=== PATIENT | male | born 1950 | race Caucasian/White ===

== ENCOUNTER 2016-10-01 10:10 | Emergency (ER) | payer OTHER, MEDICARE ==
[~2016-10-01] VITALS: Ht 175.3 cm; Wt 102.4 kg
[~2016-10-01 10:10] MED LIST: AMLO-114 PO; CIPR-255 PO; LISI-725 PO
[2016-10-01 10:15] VITALS: Ht 175.3 cm; Wt 102.4 kg
--- NOTE | 2016-10-01 11:01 | EMERGENCY ROOM VISIT NOTE ---
History Report prepared by Ede: Mayank Wise Under the Supervision of: Dr. Selvin Vu M.D. First contact with patient: 10:31 Chief Complaint: BACK PAIN Stated Complaint: BACK PAIN-PAIN GOES DOWN LEG AND HAND PAIN History of Present Illness The patient is a 66 year old male who presents to the Emergency Room with complaints of persistent bilateral lower back pain for the past two months. The pain is rated 7/10 in severity, and is worsened with movement. He is able to ambulate. The patient has not taken any NSAIDS for pain. The patient also has pain radiating down his bilateral legs. He has had right thumb pain with movement for the past two months as well. The patient denies any urinary symptoms or incontinence of bowel or bladder. The patient saw his PCP (Hafsa ), who referred him to physical therapy, which did not relieve his back pain. He has continued doing the exercises from physical therapy without relief. The patient has a history of hypertension and diabetes. He denies any history of arthritis. Source of History: patient Onset: two months Position: back (lower) Symptom Intensity: 7/10 Timing: other (persistent) Modifying Factors (Worsening): movement Associated Symptoms: No urinary symptoms Review of Systems All systems have been listed, reviewed, and are negative other than those previously mentioned. Please see Additional Medical History Sheet. Past Medical & Surgical Medical Problems: (1) BPH (benign prostatic hypertrophy) (2) Diabetes (3) Hypertension Family History Psychiatric illness Social History Smoking Status: Never Smoker Alcohol Use: none Drug Use: none Marital Status: single Occupation Status: unemployed Current/Historical Medications Scheduled Amlodipine (Norvasc), 10 MG PO QAM Aspirin (Aspir-Low), 1 TAB PO DAILY Lisinopril (Zestril), 20 MG PO QAM Scheduled PRN Ibuprofen Tab (Motrin), 600 MG PO Q6H PRN for Pain Allergies Coded Allergies: No Known Allergies (Unverified , 10/01/16) Physical Exam Vital Signs Date Time Temp Pulse Resp B/P Pulse Ox O2 Delivery O2 Flow Rate FiO2 10/01/16 13:03 36.7 75 18 109/70 98 10/01/16 12:47 75 18 109/70 98 Room Air 10/01/16 10:15 36.7 101 18 122/73 95 Room Air Physical Exam GENERAL: Patient awake, alert, oriented x 3. Patient follows commands. Patient does not appear toxic. Patient is adequately hydrated and well- nourished. SKIN: No erythema, pallor, cyanosis or rash HEENT: Normal head, pupils equal, reactive to light and accommodation. Ears normal. Oral cavity and posterior pharynx appear normal. Neck: Without adenopathy, no neck vein distention. LUNGS: Clear to auscultation. No wheezes, no rales, no rhonchi. HEART: 3/6 systolic murmur which the patient says is old. Regular rate and rhythm. ABDOMEN: No masses, no rebound, no hepatomegaly or splenomegaly. Soft, nontender. BACK: No midline spinal tenderness. No paraspinal tenderness. No CVA tenderness. Negative straight leg raises bilaterally. EXTREMITIES: No signs of trauma. No pedal or pretibial edema. No calf or thigh tenderness. Full range of motion of the right thumb, no obvious deformity , pain with resisted extension. NEUROLOGIC: Cranial nerves II-XII within normal limits. No gross motor sensory function deficits. Medical Decision & Procedures ER Provider Diagnostic Interpretation: X ray results are stated below per my interpretation and the radiologist's interpretation. RIGHT THUMB 3 VIEWS HISTORY: pain in thumb Right COMPARISON: None. FINDINGS: There is no fracture or dislocation. Soft tissues are unremarkable. No radiopaque foreign bodies. Moderate osteoarthritis at the first carpometacarpal joint with mild osteoarthritis at the first MCP joint and interphalangeal joint of the thumb. IMPRESSION: Right thumb osteoarthritis most pronounced at the carpometacarpal joint. No fracture or dislocation. Electronically signed by: Esau Jeronimo M.D. 10/01/2016 11:59 AM Dictated Date/Time: 10/01/2016 11:57 AM FLUOROSCOPIC IMAGES OF THE LUMBAR SPINE CLINICAL HISTORY: Low back pain. COMPARISON: None FLUOROSCOPY TIME: FINDINGS: Vertebral body heights are maintained. There is no fracture or suspicious lesion. There is mild to moderate multilevel degenerative disc disease and facet arthrosis. IMPRESSION: 1. No acute lumbar spine fracture or subluxation. 2. Mild to moderate multilevel degenerative disc disease and facet arthrosis of the lumbar spine. Electronically signed by: Noah Cox M.D. 10/01/2016 12:05 PM Dictated Date/Time: 10/01/2016 12:05 PM Medications Administered Medications (Trade) Dose Ordered Sig/Con Route Start Time Stop Time Status Last Admin Dose Admin Ibuprofen (Motrin Tab) 600 mg NOW STAT PO 10/01/16 11:04 10/01/16 11:08 DC 10/01/16 11:18 600 MG ED Course 1032: The patient was evaluated by the [facility]. 1057: Past medical records reviewed. The patient was evaluated in room C4. A complete history and physical examination was performed. 1104: Ibuprofen 600 mg PO. 1235: The medical student went over the findings with the patient. He is okay with taking NSAIDS and will be discharged. 1245: Upon reevaluation, the patient appeared to have improvement of his symptoms. I discussed today's findings with him. He verbalized agreement of the treatment plan. He was discharged home. Medical Decision I considered multiple diagnoses including lower back pain, arthritis, De Quervain tenosynovitis, lumbar spinal stenosis vs disc herniation, sciatica, muscular strain, kidney stones. The patient's clinical findings and imaging are most consistent with arthritis in both his hand and lower back. The patient will be placed on ibuprofen. The patient is on blood pressure medication which may be affected but I believe the benefit outweighs the risk at this time. The patient was encouraged to follow back with his family physician to make sure that he is having improvement and to check his blood pressure. Impression Primary Impression: Degenerative joint disease (DJD) of lumbar spine Additional Impression: Degenerative joint disease of right hand Scribe Attestation The scribe's documentation has been prepared under my direction and personally reviewed by me in its entirety. I confirm that the note above accurately reflects all work, treatment, procedures, and medical decision making performed by me. Departure Information Dispostion Home / Self-Care Prescriptions Ibuprofen Tab (MOTRIN) 600 Mg Tab 600 MG PO Q6H Y for Pain, #20 TAB Prov: Selvin Vu M.D. 10/01/16 Referrals Joy Martins D.O. (PCP) Forms HOME CARE DOCUMENTATION FORM, IMPORTANT VISIT INFORMATION Patient Instructions My [facility] Additional Instructions 600 mg ibuprofen every 6 hours as needed for back or thumb pain. Continue all of your current medications as prescribed. Follow-up with a family physician within the next 2 weeks. Problem Qualifiers
[2016-10-01] MEDS ORDERED: IBUPROFEN 600 MG TAB PO STA (11:04)
[2016-10-01] MEDS ORDERED: ASPI81TA25 PO (11:16)
--- NOTE | 2016-10-01 12:01 | DIAGNOSTIC IMAGING REPORT ---
RIGHT THUMB 3 VIEWS HISTORY: pain in thumb Right COMPARISON: None. FINDINGS: There is no fracture or dislocation. Soft tissues are unremarkable. No radiopaque foreign bodies. Moderate osteoarthritis at the first carpometacarpal joint with mild osteoarthritis at the first MCP joint and interphalangeal joint of the thumb. IMPRESSION: Right thumb osteoarthritis most pronounced at the carpometacarpal joint. No fracture or dislocation. Electronically signed by: Esau Jeronimo M.D. 10/01/2016 11:59 AM Dictated Date/Time: 10/01/2016 11:57 AM
--- NOTE | 2016-10-01 12:07 | DIAGNOSTIC IMAGING REPORT ---
FLUOROSCOPIC IMAGES OF THE LUMBAR SPINE CLINICAL HISTORY: Low back pain. COMPARISON: None FLUOROSCOPY TIME: FINDINGS: Vertebral body heights are maintained. There is no fracture or suspicious lesion. There is mild to moderate multilevel degenerative disc disease and facet arthrosis. IMPRESSION: 1. No acute lumbar spine fracture or subluxation. 2. Mild to moderate multilevel degenerative disc disease and facet arthrosis of the lumbar spine. Electronically signed by: Noah Cox M.D. 10/01/2016 12:05 PM Dictated Date/Time: 10/01/2016 12:05 PM
[2016-10-01] MEDS ORDERED: IBUP-1427 PO (12:44)
[2016-10-01 13:03] VITALS: BP 109/70; PULSE 75; TEMP 36.7; O2SAT 98
== END 2016-10-01 13:05 | disposition home or self-care (01) ==
LOC: C.EDB 10:12 → C.EDC 13:05
DX: M51.36 Other intervertebral disc degeneration, lumbar region (principal); M19.041 Primary osteoarthritis, right hand; I10 Essential (primary) hypertension; E11.9 Type 2 diabetes mellitus without complications; N40.0 Benign prostatic hyperplasia without lower urinary tract symptoms; Z79.82 Long term (current) use of aspirin; Z79.899 Other long term (current) drug therapy

== ENCOUNTER 2018-04-29 06:42 | Emergency (ER) | payer MEDICARE, OTHER ==
[~2018-04-29] VITALS: Ht 175.3 cm; Wt 101.0 kg
[~2018-04-29 06:42] MED LIST changes: -AMLO-114 PO; +AMLO10TA3 PO; +ASPI81TA25 PO; -CIPR-255 PO
[2018-04-29] MEDS ORDERED: SODIUM CHLORIDE 0.9% 1000ML 1,000 ML IV STA (06:48)
[2018-04-29 06:50] VITALS: TEMP 36.5; Ht 175.3 cm; Wt 101.0 kg
--- NOTE | 2018-04-29 06:52 | EMERGENCY ROOM VISIT NOTE ---
History Report prepared by Ede: Nanda Corona Under the Supervision of: Dr. Lui Nayak M.D. First contact with patient: 06:46 Stated Complaint: RECTAL BLEED History of Present Illness The patient is a 67 year old male who presents to the Emergency Room with complaints of rectal bleeding beginning at 1930 last night. He notes he has diarrhea with bright red blood and states it was "pouring out of him nonstop." He had some diaphoresis but denies any LOC, fevers, blood in his urine, pain with his diarrhea, abdominal pain, black stools, or syncope. The patient takes 81 mg of aspirin regularly but is not on any blood thinners. Source of History: patient Onset: 1929 last night Position: other (rectum) Quality: other (rectal bleeding) Timing: other ("poruing out of him nonstop") Associated Symptoms: + diaphoresis, No LOC, No fevers, No urinary symptoms ( blood in his urine) Note: Negative pain with diarrhea, history of CHF Review of Systems See HPI for pertinent positives and negatives. A total of ten systems were reviewed and were otherwise negative. Past Medical & Surgical Medical Problems: (1) BPH (benign prostatic hypertrophy) (2) Diabetes (3) Hypertension Family History Psychiatric illness Social History Smoking Status: Never Smoker Alcohol Use: none Drug Use: none Marital Status: single Occupation Status: unemployed Current/Historical Medications Scheduled Amlodipine (Norvasc), 10 MG PO QAM Aspirin (Aspir-Low), 1 TAB PO DAILY Lisinopril (Zestril), 20 MG PO QAM Allergies Coded Allergies: No Known Allergies (Unverified , 10/01/16) Physical Exam Vital Signs Date Time Temp Pulse Resp B/P (MAP) Pulse Ox O2 Delivery O2 Flow Rate FiO2 04/29/18 07:47 91 18 160/103 95 04/29/18 06:55 102 04/29/18 06:50 36.5 100 18 179/112 96 Room Air Physical Exam Physical Exam GENERAL: He is oriented to person, place, and time. He appears well-developed and well-nourished. He does not appear distressed. HENT: Exam performed. Head: Normocephalic and atraumatic. Right Ear: External ear normal. No mastoid tenderness. Left Ear: External ear normal. No mastoid tenderness. Mouth/Throat: The oropharynx is clear and moist. No trismus in the jaw. No dental abscesses or uvula swelling. No oropharyngeal exudate or tonsillar abscesses. EYES: Conjunctivae and EOM are normal. Pupils are equal, round, and reactive to light. Right eye exhibits no discharge. Left eye exhibits no discharge. No scleral icterus. NECK: Normal range of motion. Neck supple. No JVD present. No spinous process tenderness present. No carotid bruit present. No rigidity. No tracheal deviation and normal range of motion present. No Brudzinski's sign and no Kernig 's sign noted. CV: Normal rate, regular rhythm, normal heart sounds and intact distal pulses. There is no peripheral edema. Palpable radial pulses bue. PULM/CHEST: Effort normal and breath sounds normal. No respiratory distress. No stridor. He has no wheezes. He has no rales. Chest Wall: He exhibits no tenderness. ABD: The abdomen is soft. Bowel sounds are normal. He has no distension. No mass is present. There is no tenderness. There is no rebound, no guarding, no Currie's sign and no tenderness at McBurney's point. Rovsig negative.Bright red blood per rectum MUSC/SKEL: Normal range of motion. There is no peripheral edema, tenderness or deformity. LYMPH: No cervical adenopathy. NEURO: He is alert and oriented to person, place, and time. He has normal strength. No cranial nerve deficit or sensory deficit. Coordination and gait normal. GCS eye subscore is 4. GCS verbal subscore is 5. GCS motor subscore is 6. Cerebellar tests wnl. SKIN: Skin is warm and dry. He is not diaphoretic. PSYCH: He has a normal mood and affect. Behavior is normal. Judgment and thought content normal. Medical Decision & Procedures Laboratory Results 04/29/18 06:50 Red Blood Count 4.70, Mean Corpuscular Volume 87.4, Mean Corpuscular Hemoglobin 28.5, Mean Corpuscular Hemoglobin Concent 32.6, Mean Platelet Volume 11.0, Neutrophils (%) (Auto) 80.0, Lymphocytes (%) (Auto) 11.6, Monocytes (%) (Auto) 5.2, Eosinophils (%) (Auto) 2.6, Basophils (%) (Auto) 0.3, Neutrophils # (Auto) 9.41, Lymphocytes # (Auto) 1.36, Monocytes # (Auto) 0.61, Eosinophils # (Auto) 0.31, Basophils # (Auto) 0.03 04/29/18 06:50 Test 04/29/18 06:50 White Blood Count 11.76 K/uL (4.8-10.8) Red Blood Count 4.70 M/uL (4.7-6.1) Hemoglobin 13.4 g/dL (14.0-18.0) Hematocrit 41.1 % (42-52) Mean Corpuscular Volume 87.4 fL (80-100) Mean Corpuscular Hemoglobin 28.5 pg (25-34) Mean Corpuscular Hemoglobin Concent 32.6 g/dl (32-36) Platelet Count 231 K/uL (130-400) Mean Platelet Volume 11.0 fL (7.4-10.4) Neutrophils (%) (Auto) 80.0 % Lymphocytes (%) (Auto) 11.6 % Monocytes (%) (Auto) 5.2 % Eosinophils (%) (Auto) 2.6 % Basophils (%) (Auto) 0.3 % Neutrophils # (Auto) 9.41 K/uL (1.4-6.5) Lymphocytes # (Auto) 1.36 K/uL (1.2-3.4) Monocytes # (Auto) 0.61 K/uL (0.11-0.59) Eosinophils # (Auto) 0.31 K/uL (0-0.5) Basophils # (Auto) 0.03 K/uL (0-0.2) RDW Standard Deviation 44.4 fL (36.4-46.3) RDW Coefficient of Variation 13.8 % (11.5-14.5) Immature Granulocyte % (Auto) 0.3 % Immature Granulocyte # (Auto) 0.04 K/uL (0.00-0.02) Prothrombin Time 10.6 SECONDS (9.0-12.0) Prothromb Time International Ratio 1.0 (0.9-1.1) Activated Partial Thromboplast Time 24.7 SECONDS (21.0-31.0) Partial Thromboplastin Ratio 1.0 Anion Gap 9.0 mmol/L (3-11) Est Creatinine Clear Calc Drug Dose 55.6 ml/min Estimated GFR () 55.6 Estimated GFR (Non- 48.0 BUN/Creatinine Ratio 18.2 (10-20) Calcium Level 8.2 mg/dl (8.5-10.1) Total Bilirubin 0.5 mg/dl (0.2-1) Direct Bilirubin 0.1 mg/dl (0-0.2) Aspartate Amino Transf (AST/SGOT) 12 U/L (15-37) Alanine Aminotransferase (ALT/SGPT) 19 U/L (12-78) Alkaline Phosphatase 108 U/L (45-117) Total Protein 6.8 gm/dl (6.4-8.2) Albumin 3.2 gm/dl (3.4-5.0) Lipase 118 U/L (73-393) Laboratory results reviewed by me Medications Administered Medications (Trade) Dose Ordered Sig/Con Route Start Time Stop Time Status Last Admin Dose Admin Sodium Chloride 1,000 ml @ 999 mls/hr Q1H1M STAT IV 04/29/18 06:48 04/29/18 07:48 DC 04/29/18 07:00 999 MLS/HR ECG Per My Interpretation Indication: other (anemia) Rate (beats per minute): 100 Rhythm: sinus rhythm Findings: other (VA, QRS, and QTC limits within normal limits, no ST elevation or depression ) ED Course 0647: The patient was evaluated in room A12. A complete history and physical exam was performed. 0648: Ordered Sodium Chloride 1000 ml @ 999 mls/hr IV 1925: Vital signs stable. His labs show hemoglobin of 13.4 stable at his baseline. Creatine is 1.47 stable at baseline. Repeat abdominal exam wnl. No pain on palpation of abdomen. Pt will follow up with PCP and major case detective will see the pt. He will follow up with GI. DISCHARGE - Plan of care discussed with patient and questions answered. The patient was given both verbal and printed discharge instructions. The patient verbalized understanding and ability to comply. The patient is to seek outpatient follow up as noted in the discharge instructions. The patient verbalized understanding and ability to comply. The patient is discharged in stable condition. The patient was instructed to return for worsening symptoms. Medical Decision Vital signs stable. His labs show hemoglobin of 13.4 stable at his baseline. Creatine is 1.47 stable at baseline. Repeat abdominal exam wnl. No pain on palpation of abdomen. Pt will follow up with PCP and major case detective will see the pt. He will follow up with GI. DISCHARGE - Plan of care discussed with patient and questions answered. The patient was given both verbal and printed discharge instructions. The patient verbalized understanding and ability to comply. The patient is to seek outpatient follow up as noted in the discharge instructions. The patient verbalized understanding and ability to comply. The patient is discharged in stable condition. The patient was instructed to return for worsening symptoms. Medication Reconcilliation Current Medication List: was personally reviewed by me Blood Pressure Screening Patient's blood pressure: Elevated blood pressure Blood pressure disposition: Elevated BP felt to be situational Impression Primary Impression: Hematochezia Scribe Attestation The scribe's documentation has been prepared under my direction and personally reviewed by me in its entirety. I confirm that the note above accurately reflects all work, treatment, procedures, and medical decision making performed by me. The chart was completed utilizing [employer] Speech voice recognition software. Grammatical errors, random word insertions, pronoun errors, and incomplete sentences are an occasional consequence of this system due to software limitations, ambient noise, and hardware issues. Any formal questions or concerns about the content, text, or information contained within the body of this dictation should be directly addressed to the physician for clarification. Departure Information Dispostion Home / Self-Care Referrals Joy Martins D.O. (PCP) Forms HOME CARE DOCUMENTATION FORM, IMPORTANT VISIT INFORMATION, WORK / SCHOOL INSTRUCTIONS Additional Instructions Follow-up with GI in 1-2 weeks. Return to the emergency department if you develop fever greater 100.4, abdominal pain, lose consciousness, develop blood in urine, black tarry stools, or your symptoms continue/worsen.
[2018-04-29 07:00] LABS: BASO % 0.3 %; BASO ABS # 0.03 K/uL (0-0.2); EOS % 2.6 %; EOS ABS # 0.31 K/uL (0-0.5); HEMATOCRIT 41.1 % (42-52); HEMOGLOBIN 13.4 g/dL (14.0-18.0); IG# 0.04 K/uL (0.00-0.02); LYMPH % 11.6 %; LYMPH ABS # 1.36 K/uL (1.2-3.4); MEAN CELL VOLUME 87.4 fL (80-100); MEAN CORPUSCULAR HEMOGLOBIN 28.5 pg (25-34); MEAN CORPUSCULAR HGB CONC 32.6 g/dl (32-36); MONO % 5.2 %; MONO ABS # 0.61 K/uL (0.11-0.59); NEUT ABS # 9.41 K/uL (1.4-6.5); PLATELET COUNT 231 K/uL (130-400); RED CELL DISTRIBUTION WIDTH CV 13.8 % (11.5-14.5); RED CELL DISTRIBUTION WIDTH SD 44.4 fL (36.4-46.3); WHITE BLOOD COUNT 11.76 K/uL (4.8-10.8)
[2018-04-29 07:10] LABS: PTT PATIENT 24.7 SECONDS (21.0-31.0)
[2018-04-29 07:19] LABS: ALBUMIN 3.2 gm/dl (3.4-5.0); CALCIUM 8.2 mg/dl (8.5-10.1); CREATININE 1.47 mg/dl (0.60-1.40); POTASSIUM 3.8 mmol/L (3.5-5.1); TOTAL PROTEIN 6.8 gm/dl (6.4-8.2)
[2018-04-29 07:47] VITALS: BP 160/103; PULSE 91; O2SAT 95
== END 2018-04-29 07:48 | disposition home or self-care (01) ==
LOC: EDBD 06:42 → C.EDA 06:44
DX: K92.1 Melena (principal); N40.0 Benign prostatic hyperplasia without lower urinary tract symptoms; E11.9 Type 2 diabetes mellitus without complications; I10 Essential (primary) hypertension; Z81.8 Family history of other mental and behavioral disorders; Z79.899 Other long term (current) drug therapy; Z79.82 Long term (current) use of aspirin

== ENCOUNTER 2021-01-29 08:22 | Inpatient (IN) ==
--- NOTE | 2020-12-09 12:13 | PAT Medication Instructions ---
Medication Instructions Date of Service December 09, 2020 Home Medications Medication Instructions Recorded lancets 30 gauge #50 ea 02/05/20 blood-glucose meter #1 ea 02/06/20 glipizide 5 mg tablet 5 mg PO BID #180 tab 05/13/20 tramadol 50 mg tablet 50 mg PO Q8H PRN #14 tab 05/30/20 amlodipine 10 mg tablet 10 mg PO QAM #90 tab 06/17/20 atorvastatin 20 mg tablet 20 mg PO QAM #90 tab 06/17/20 blood sugar diagnostic #50 ea 09/17/20 aspirin [Aspir-81] 81 mg PO QAM glucosamine sulf dipot chlr,msm,chond 550 mg-C 30 mg-josefina 1 mg capsule 1 cap PO QPM metformin 500 mg tablet 500 mg PO BID glipizide 5 mg tablet 5 mg PO BID tramadol 50 mg tablet 50 mg PO Q8H PRN amlodipine 10 mg tablet 10 mg PO QAM atorvastatin 20 mg tablet 20 mg PO QAM garlic 1,000 mg PO QAM glucos sul [id number]-[id number]-Mn [Glucosamine Chondroitin] 2 cap PO QAM lisinopril 20 mg PO QAM vit C,E,zinc,Qc-wdxzk-7-lutein-zeaxanthin 250 mg-2.5 mg-0.5 mg capsule 1 cap PO BID ASK your prescriber and surgeon aspirin [Aspir-81] 81 mg PO QAM STOP taking 2 weeks before surgery (or as soon as possible if surgery is within 2 weeks) glucosamine sulf dipot chlr,msm,chond 550 mg-C 30 mg-josefina 1 mg capsule 1 cap PO QPM garlic 1,000 mg PO QAM glucos sul [id number]-jut-oeeoi-C-Mn [Glucosamine Chondroitin] 2 cap PO QAM vit C,E,zinc,Nf-jtoue-8-lutein-zeaxanthin 250 mg-2.5 mg-0.5 mg capsule 1 cap PO BID DO NOT take the morning of surgery metformin 500 mg tablet 500 mg PO BID glipizide 5 mg tablet 5 mg PO BID lisinopril 20 mg PO QAM Take morning of surgery With a small sip of water, OTHERWISE NOTHING TO EAT OR DRINK AFTER MIDNIGHT: tramadol 50 mg tablet 50 mg PO Q8H PRN (okay to take up to 4 hours prior to surgery if needed) amlodipine 10 mg tablet 10 mg PO QAM atorvastatin 20 mg tablet 20 mg PO QAM Take evening before surgery metformin 500 mg tablet 500 mg PO BID glipizide 5 mg tablet 5 mg PO BID tramadol 50 mg tablet 50 mg PO Q8H PRN (if needed) Other Notes If you have any questions please call us at [phone] or [phone] or [phone] or [phone]
--- NOTE | 2020-12-10 14:13 | Anesthesiology Consultation ---
Date of Service December 10, 2020 Assessment & Plan (1) Encounter for pre-operative examination: - COVID screening: Per assessment on 12/10: Travel screen negative, no known COVID-19 positive contacts or current COVID-19 related symptoms. Patient had ini tial covid vaccine (second vaccine scheduled 12/25). Surgeon arranging preop COVID testing (scheduled 12/27; [place]). Awaiting results. - Hx glidescope intubation: Bipolar TURP (01/23/16): Good view with Glidescope#4, ETT 8.0 at [facility] - Check BSG AM DOS - ASA instructions per surgeon/prescriber Chart Review Chart Review: Acceptable Risk for Surgery (pending PCP and cardiology clearances) and Patient seen in Pre Admission Testing Teaching & Discussion Pre-Anesthesia Teaching/Discussion Notes: Instructed NPO after midnight before surgery,except medications with 15 cc of water. Medication instructions provided according to the PAT guidelines. History Surgery Operation Date: 01/03/21 07:45 Proposed Procedures p L2-S1 Decompression and Fusion, Spinal Cord Monitoring - Jacobo Andrade DO Height/Weight Height: 5 ft 9 in Weight: 98.4 kg Allergies Allergy/AdvReac Type Severity Reaction Status Date / Time No Known Allergies Allergy Verified 12/05/20 09:44 Medications Home Medications Medication Instructions Recorded Confirmed Last Taken aspirin [Aspir-81] 81 mg PO QAM 12/08/18 12/05/20 08/30/19 glucosamine sulf dipot 1 cap PO QPM cap 12/04/19 12/05/20 Unknown chlr,msm,chond 550 mg-C 30 mg-josefina 1 mg capsule metformin 500 mg tablet 500 mg PO BID 12/04/19 12/05/20 Unknown lancets 30 gauge #50 ea 02/05/20 12/05/20 Unknown blood-glucose meter #1 ea 02/06/20 12/05/20 Unknown glipizide 5 mg tablet 5 mg PO BID #180 tab 05/13/20 12/05/20 Unknown tramadol 50 mg tablet 50 mg PO Q8H PRN #14 tab 05/30/20 12/05/20 Unknown amlodipine 10 mg tablet 10 mg PO QAM #90 tab 06/17/20 12/05/20 Unknown atorvastatin 20 mg tablet 20 mg PO QAM #90 tab 06/17/20 12/05/20 Unknown blood sugar diagnostic #50 ea 09/17/20 12/05/20 Unknown garlic 1,000 mg PO QAM 11/29/20 12/05/20 Unknown glucos sul 6BBm-mdd-yords-C-Mn 2 cap PO QAM 11/29/20 12/05/20 Unknown [Glucosamine Chondroitin] lisinopril 20 mg PO QAM 11/29/20 12/05/20 Unknown vit 1 cap PO BID cap 12/05/20 12/05/20 Unknown C,E,zinc,Hy-ayapv-5-lutein-zeaxanthin 250 mg-2.5 mg-0.5 mg capsule Past Medical History Medical History (Updated 12/10/20 @ 14:24 by Beverley Vides) Benign prostatic hyperplasia with urinary obstruction Cerebral palsy "Borderline" case, no significant deficits CKD stage 3 due to type 2 diabetes mellitus Diabetes mellitus, type II NIDDM Hyperlipidemia Hypertension Lumbar spinal stenosis Obesity (BMI 30.0-34.9) Temporomandibular joint disorder + clicking, no locking Exercise / Class Metabolic Activity III < 4 Walking/Shop/Light housework (uses walker) Past Family History Family History Grandfather (Maternal) Family history of diabetes mellitus Denies family history of Ovarian cancer Prostate cancer Myocardial infarction Breast cancer Colorectal cancer Past Surgical History Surgical History History of cataract surgery History of difficult intubation Bipolar TURP: 01/23/16: Good view with glidescope#4, ETT 8.0 at [facility] Hx of transurethral resection of prostate Status post biopsy of skin Social History Smoking Status: Never smoker Do You Dip or Chew Tobacco: No Hx Alcohol Use: No Hx Substance Use: No substance use type: does not use Review of Systems Patient denies chest pain, shortness of breath, fever, chills, cough, wheezing, palpitations. Physical Exam Vital Signs VITALS BP 127/84 P 83 TEMP 97.7 SP02 96%RA RESP 18 PHYSICAL Full neck and c-spine range of motion. Full TMJ range of motion. TMD 3 finger breaths Mallampati Score 3 Dentition: + crown (unknown location), several missing including right upper side teeth Lungs: clear throughout to auscultation Cardiac: regular rate and rhythm, no murmurs noted Spine: normal Carotid arteries: negative bruit Extremities: no edema Trimmed whittaker Testing Laboratory Results Urine Color Yellow 12/10/20 Unknown Urine Appearance Clear (Clear) 12/10/20 Unknown Urine pH 5.0 (4.5-7.5) 12/10/20 Unknown Ur Specific [place] 1.020 (1.000-1.030) 12/10/20 Unknown Urine Protein Negative (Negative) 12/10/20 Unknown Urine Glucose (UA) Negative (Negative) 12/10/20 Unknown Urine Ketones Trace (Negative) H 12/10/20 Unknown Urine Nitrite Negative (Negative) 12/10/20 Unknown Ur Leukocyte Esterase Trace (Negative) H 12/10/20 Unknown Urine WBC (Auto) 1-5 /hpf (0-5) 12/10/20 Unknown Urine RBC (Auto) 0-4 /hpf (0-4) 12/10/20 Unknown U Hyaline Cast (Auto) 1-5 /lpf (0-5) 12/10/20 Unknown U Epithel Cells (Auto) 10-20 /lpf (0-5) H 12/10/20 Unknown Urine Bacteria (Auto) Negative (Negative) 12/10/20 Unknown Blood Type O Positive 12/10/20 14:33 Antibody Screen NEGATIVE 12/10/20 14:33 12/05/20 WBC 8.99 H/H 14.4/43.2 PLATELETS 288 SODIUM 141 POTASSIUM 4.4 CHLORIDE 112 CO2 24 BUN 28 CREATININE 1.55 GLUCOSE 120 HGBA1C 6.8% PT 9.9 PTT 27.2 INR 1.0 Electrocardiogram Date: 12/10/20 Findings: + NSR @ (71) Chest X-Ray Date: 12/10/20 FINDINGS: The cardiac and mediastinal contours remain stable. There is persistent aortic tortuosity/ectasia. There is no failure. There is no focal pulmonary consolidation. There are no pleural effusions. IMPRESSION: No active disease in the chest. Echocardiogram Date: 01/20/19 LVEF 65 to 60%. During TTE was sinus tachycardia. Moderately increased concentric LV wall thickness. Grade 1 diastolic dysfunction. Mild AV sclerosis. Mildly enlarged aortic root. Borderline enlarged proximal ascending thoracic aorta.
--- NOTE | 2020-12-10 15:11 | XRay Report ---
XR chest Pre-admission PA/Lat CLINICAL HISTORY: Preoperative chest COMPARISON STUDY: 12/12/2018 FINDINGS: The cardiac and mediastinal contours remain stable. There is persistent aortic tortuosity/e ctasia. There is no failure. There is no focal pulmonary consolidation. There are no pleural effusion s.[ IMPRESSION: No active disease in the chest. ACT 112: Negative or not required by law. Electronically signed by: Jah Bowman M.D. 12/10/2020 3:09 PM
[2020-12-10 15:20] LABS: Appearance Urine Clear (Clear); Bacteria Urine Automated Negative (Negative); Bilirubin Urine Negative (Negative); Blood Urine Negative (Negative); Color Urine Yellow; Glucose Urine UA Negative (Negative); Ketones Urine Trace (Negative); Leukocyte Esterase Urine Trace (Negative); Nitrite Urine Negative (Negative); Protein Urine Negative (Negative); RBC Urine Automated 0-4 /hpf (0-4); Urobilinogen Urine Negative (Negative)
--- NOTE | 2020-12-11 12:51 | Electrocardiogram Report ---
Test Reason : Blood Pressure : / mmHG Vent. Rate : 071 BPM Atrial Rate : 071 BPM P-R Int : 208 ms QRS Dur : 094 ms QT Int : 380 ms P-R-T Axes : 059 016 032 degrees QTc Int : 412 ms Normal sinus rhythm When compared with ECG of 12-DEC-2018 14:07, T wave inversion no longer evident in Lateral leads Confirmed by Panda Lizarraga ([id number]) on 12/11/2020 12:50:56 PM Referred By: Jacobo Andrade Confirmed By:Matt Lizarraga
[~2021-01-29 08:22] MED LIST changes: +ACETAMINOPHEN 500 MG TAB PO SCH; -AMLO10TA3 PO; -ASPI81TA25 PO; +CeleBREX 200 MG CAP PO SCH; +GABAPENTIN 300 MG CAP PO SCH; -LISI-725 PO; +LR 15ML/HR IV SCH; +LR 60ML/HR IV SCH; +ceFAZolin 2000MG 2,000 MG/15 ML SYR IV SCH
[2021-01-29] MEDS ORDERED: LIDOCAINE HCL 2% 2 ML VIAL/AMP(20MG/ML) INFIL ONE (08:32)
[2021-01-29] MEDS ORDERED: ONDANSETRON INJ 2 MG/ML 2 ML VIAL ONE ×2 (08:32→10:53)
[2021-01-29] MEDS ORDERED: fentaNYL citrate 100 MCG/2 ML VIAL ONE (08:32)
[2021-01-29] MEDS ORDERED: DEXAMETHASONE SOD INJ 4 MG/ML VIAL ONE (08:32)
[2021-01-29] MEDS ORDERED: PROPOFOL IV EMULSION 10 MG/ML 20 ML VIAL IV ONE (08:32)
[2021-01-29] MEDS ORDERED: GLYCOPYRROLATE 0.2 MG/ML VIAL ONE ×2 (08:32→10:53)
[2021-01-29] MEDS ORDERED: LARYING-O-JET KIT (LTA) ONE (08:32)
[2021-01-29] MEDS ORDERED: SODIUM CHLORIDE 0.9% INJ 10 ML VIAL ONE (08:32)
[2021-01-29] MEDS ORDERED: MIDAZOLAM HCL 1 MG/ML 2ML VIAL ONE (08:32)
[2021-01-29] MEDS ORDERED: NEOSTIGMINE METHYLSULFATE 1 MG/ML 10ML VIAL ONE (08:32)
[2021-01-29] MEDS ORDERED: HYDROmorphone INJ 2 MG/ML SYR/VIAL ONE (08:32)
[2021-01-29] MEDS ORDERED: ROCURONIUM BROMIDE 10 MG/ML 5 ML VIAL IV ONE ×2 (08:32→12:54)
--- NOTE | 2021-01-29 09:26 | History & Physical Bridge Note ---
Date of Service January 29, 2021 History & Physical Bridge Note I have examined the patient, reviewed the History & Physical and in the interval since the performance of the History & Physical I have noted the following changes of clinical significance: no changes noted
--- NOTE | 2021-01-29 09:27 | History & Physical Report ---
Date of Service January 29, 2021 Assessment & Plan (1) Neurogenic claudication due to lumbar spinal stenosis: Admission and Anticipated Discharge Date Admission Date: L2-S1 decompression fusion History of Present Illness Chief Complaint: Back and bilateral leg pain Primary Care Provider: Anatoly Solis DO This is a 70-year-old male presents with chronic persistent back and bilateral leg pain. After failing course of nonoperative care is here for surgical intervention. Allergies Allergy/AdvReac Type Severity Reaction Status Date / Time No Known Allergies Allergy Verified 01/29/21 08:53 Home Medications Medication Instructions Recorded Confirmed Type aspirin [Aspir-81] 81 mg PO QAM 12/08/18 01/29/21 History lancets 30 gauge #50 ea 02/05/20 12/17/20 Rx blood-glucose meter #1 ea 02/06/20 12/17/20 Rx glipizide 5 mg tablet 5 mg PO BID #180 tab 05/13/20 01/29/21 Rx tramadol 50 mg tablet 50 mg PO Q8H PRN #14 tab 05/30/20 01/29/21 Rx blood sugar diagnostic #50 ea 09/17/20 12/17/20 Rx garlic 1,000 mg PO QAM 11/29/20 01/29/21 History glucos sul 9FLw-qed-muelv-C-Mn 2 cap PO QAM 11/29/20 01/29/21 History [Glucosamine Chondroitin] vit 1 cap PO BID cap 12/05/20 01/29/21 History C,E,zinc,Dx-sxgdh-1-lutein-zeaxanthin 250 mg-2.5 mg-0.5 mg capsule amlodipine 10 mg tablet 10 mg PO QAM #90 tab 12/30/20 01/29/21 Rx atorvastatin 20 mg tablet 20 mg PO QAM #90 tab 12/30/20 01/29/21 Rx lisinopril 20 mg tablet 20 mg PO QAM #90 tab 12/30/20 01/29/21 Rx metformin 500 mg tablet 500 mg PO BID #180 tab 12/30/20 01/29/21 Rx Past Med/Surg History Medical History Benign prostatic hyperplasia with urinary obstruction Cerebral palsy CKD stage 3 due to type 2 diabetes mellitus Diabetes mellitus, type II Hyperlipidemia Hypertension Lumbar spinal stenosis Obesity (BMI 30.0-34.9) Temporomandibular joint disorder Surgical History History of cataract surgery History of difficult intubation Hx of transurethral resection of prostate Status post biopsy of skin Family History Grandfather (Maternal) Family history of diabetes mellitus Denies family history of Ovarian cancer Prostate cancer Myocardial infarction Breast cancer Colorectal cancer Social History Smoking Status: Never smoker Second Hand Exposure: No; Do You Dip or Chew Tobacco: No; Hx Alcohol Use: No Hx Substance Use: No Preferred Language: Khmer Communication Ability: Effective Visual Impairment: No Limitations Hearing Ability: Normal News Librarian Required: No Beliefs That Will Affect Care: None marital status: Single Current Living Situation: Alone current occupational status: retired Other Information That Helps Us Care for You: No Feels Safe at Home: Yes Safety Concerns: Feels Safe At This Time Childhood Exposure to Second-Hand Smoke: No caffeine: Yes Dental Care, Regularly: Yes Physical Activity Frequency: Daily Seatbelt Use: always Sunscreen Use: Yes Assistive Devices: Walker Assistive Devices Comment: uses "apartment shopping cart" Physical Exam Physical Exam: Patient is alert and oriented Heart regular rate and rhythm Lungs clear to auscultation Results & Data ([facility]) Vital Signs (Past 12 Hours) Vital Signs Temp Pulse Resp BP Pulse Ox 01/29/21 09:05 36.7 C 94 H 20 139/91 96
[2021-01-29] MEDS ORDERED: BUPIVACAINE/EPINEPHRINE 0.5% MPF 1:200,000 30 ML VIAL ONE (09:39)
[2021-01-29] MEDS ORDERED: ONDANSETRON INJ 2 MG/ML 2 ML VIAL IV PRN ×2 (09:43→16:00)
[2021-01-29] MEDS ORDERED: HYDROmorphone INJ 2 MG/ML SYR/VIAL IV PRN (09:43)
[2021-01-29] MEDS ORDERED: ePHEDrine sulfate 50 MG/ML AMP IV PRN (09:43)
[2021-01-29] MEDS ORDERED: fentaNYL citrate 100 MCG/2 ML VIAL IV PRN (09:43)
[2021-01-29] MEDS ORDERED: ATROPINE SULFATE 0.1 MG/ML 10ML SYR IV PRN (09:43)
[2021-01-29] MEDS ORDERED: FLOSEAL HEMOSTATIC MATRIX 10ML TOP ONE (10:52)
[2021-01-29] MEDS ORDERED: ePHEDrine sulfate 50 MG/ML SYR ONE (10:53)
[2021-01-29] MEDS ORDERED: PHENYLEPHRINE 100MCG/ML 5ML SYR ONE (10:53)
[2021-01-29] MEDS ORDERED: ALBUMIN HUMAN 5% 12.5 GM/250 ML VIAL IV ONE (10:58)
[2021-01-29] MEDS ORDERED: PHENYLEPHRINE HCL 10 MG/ML VIAL ONE (11:39)
--- NOTE | 2021-01-29 12:48 | Operative Report ---
Post Operative Report Pre & Post Diagnosis Operation Date: 01/29/21 09:45 Pre-Op Diagnosis: Spinal Stenosis, Lumbar Region with Neurogenic Claudication Post-Op Diagnosis: Spinal Stenosis, Lumbar Region with Neurogenic Claudication I identified the patient and participated in the time-out.: Yes Procedure Operation Date: 01/29/21 09:45 Actual Procedures #1 lumbar decompression with bilateral medial facetectomies and foraminotomies L2-3, L3-4, L4-5 and L5-S1. #2 posterior spinal fusion L2-3, L3-4, L4-5 and L5- S1. #3 placement posterior segmental instrumentation L2-S1. #4 interbody fusion L4-5 and L5-S1. #5 placement peek cage 14 x 26 mm at L4-5 and 13 x 26 mm at L5-S1. #6 placement locally harvested morselized autograft in the posterior lateral gutters. #7 placement infuse collagen sponge, master graft in the posterior lateral gutters and I factor in the interbody space. Surgeon Jacobo Andrade, DO Extractor Filler Nidhi Arredondo Estimated Blood Loss 1,050 Findings See Below Patient is 5 foot 8 inches tall weighing over 98 kg with a BMI in excess of 33. The patient's body habitus combined with an EBL of greater than 1000 cc created significant technical difficulty adding at least 50% increase to the operative time. Specimens None Indications This is a 70-year-old male who presents with above-mentioned diagnosis after failed extensive course of nonoperative care is here for the above-mentioned procedure. Description of Procedure Patient was met with identified informed consent obtained. Patient was then taken to the operative suite underwent a patient placed in a prone position the [facility] top Prakash frame. All bony prominences well-padded eyes inspected to ensure no external pressure placed upon the. This point the lumbar spine was prepped and draped in a sterile fashion. Sharp dissection with the assistance of Bovie cautery was performed down to and exposing the lamina and transverse processes of L2 L3-L4-L5 and sacral ala bilaterally. From caudal cephalad fashion complete laminectomy L5 L4 L3 and L2 was performed including bilateral medial facetectomies and foraminotomies addressing severe spinal stenosis. Pedicle screws were then placed in L2 L3-L4-L5 and S1 levels bilaterally with assistance of fluoroscopy and the properly sized jagjit placed. By way the transforaminal approach on the right complete discectomy of L5-S1 was performed endplates curetted to subcortical bleeding bone and the 13 x 26 mm peek cage filled with I factor tapped in position. Then proceeded L4-L5 and again by way of a transforaminal approach on the right complete discectomy was performed endplates curetted to subcortical being bone and a 14 x 26 mm peek cage filled I factor tapped in position. The rods were then locked in final position bilaterally. The transverse processes of L2 L3-L4-L5 and sacral ala burred to subcortical bleeding bone. Infuse collagen sponge master graft lobe autograft was placed in the posterior lateral gutters. 15 round JULIANE drain inserted. The incision was then closed with 1 Vicryl in the fascia 2-0 Vicryl subcutaneously and 4 Monocryl for final skin closure. Steri-Strip sterile dressings placed. Patient will continue to PACU stable condition. Please note spinal cord monitoring was utilized at the procedure no changes noted. Lastly Nidhi Arredondo was present at the entire surgery involved the patient positioning complex portions of the surgery and final skin closure. I attest to the content of the Intraoperative Record and any orders documented therein. Any exceptions are noted below.
--- NOTE | 2021-01-29 13:34 | Fluoroscopy Report ---
FL lumbar spine 2-3V CLINICAL HISTORY: L2-S1 DECOMPRESSION AND FUSION COMPARISON STUDY: MRI dated 09/08/2020 FLUOROSCOPY TIME: 24 seconds. NUMBER OF FLUOROSCOPIC IMAGES: 3 FINDINGS: 3 intraoperative fluoroscopic spot images reveal postsurgical changes of discectomies inter body fusions at the L4-5, and L5-S1 levels. There are postsurgical changes of an L2-S1 posterior spin al fusion with pedicle screw fixation. IMPRESSION: Intraoperative fluoroscopic spot images demonstrating an L2-S1 spinal decompression and fusion. ACT 112: Negative or not required by law. Electronically signed by: Jah Bowman M.D. 01/29/2021 1:33 PM
--- NOTE | 2021-01-29 13:53 | Anesthesiology Progress Note ---
Date of Service January 29, 2021 Anesthesia Post Procedure Vital Signs Vital Signs: Temp Pulse Pulse Resp BP Pulse Ox 01/29/21 13:40 78 16 144/79 H 97 01/29/21 13:30 80 18 107/78 97 01/29/21 13:20 84 16 152/96 H 94 01/29/21 13:10 87 20 133/94 95 01/29/21 13:09 36.3 C L 107 H 12 159/79 H 97 01/29/21 09:05 36.7 C 94 H 20 139/91 96 Pain Intensity Back: Pain Intensity: 6 Transfer of Care Handoff Completed per policy Notes Mental Status: alert / awake / arousable and participated in evaluation Patient Amnestic to Procedure: Yes Nausea / Vomiting: adequately controlled Pain: adequately controlled Airway Patency, RR, SpO2: stable & adequate BP & HR: stable & adequate Hydration State: stable & adequate Anesthetic Complications: no major complications apparent and Pt Satisfied with anesthetic care
[2021-01-29] MEDS ORDERED: PROMETHAZINE HCL 12.5 MG in SODIUM CHLORIDE 0.9% 50 ML IV PRN (16:00)
[2021-01-29] MEDS ORDERED: ACETAMINOPHEN 500 MG TAB PO PRN (16:00)
[2021-01-29] MEDS ORDERED: MAGNESIUM HYDROXIDE SUSP 30 ML UDC PO PRN (16:00)
[2021-01-29] MEDS ORDERED: HYDROmorphone INJ 1 MG/ML SYRINGE IV PRN (16:00)
[2021-01-29] MEDS ORDERED: LORazepam 0.5 MG/1 ML VIAL IV PRN (16:00)
[2021-01-29] MEDS ORDERED: SOD PHOSPHATE/SOD BIPHOSPHATE ENEMA 132 ML BTL PR PRN (16:00)
[2021-01-29] MEDS ORDERED: ONDANSETRON 4 MG OD TAB PO PRN (16:00)
[2021-01-29] MEDS ORDERED: METOCLOPRAMIDE HCL INJ 5 MG/ML 2 ML VIAL IV PRN (16:00)
[2021-01-29] MEDS ORDERED: DO NOT ADMINISTER FLU VACCINE PRN (16:00)
[2021-01-29] MEDS ORDERED: ACETAMINOPHEN 1,000 MG/100 ML VIAL IV PRN (16:00)
[2021-01-29] MEDS ORDERED: ALUMINUM/MAGNESIUM SUSP 30 ML UDC PO PRN (16:00)
[2021-01-29] MEDS ORDERED: hydrOXYzine HCl 25 MG TAB PO PRN (16:00)
[2021-01-29] MEDS ORDERED: HYDROmorphone INJ 0.5 MG/0.5 ML SYR IV PRN (16:00)
[2021-01-29] MEDS ORDERED: diphenhydrAMINE Capsule 25 MG CAP PO PRN (16:00)
[2021-01-29] MEDS ORDERED: NALOXONE HCL 0.4 MG/1 ML VIAL/CARP IV PRN (16:00)
[2021-01-29] MEDS ORDERED: LORazepam 0.5 MG TAB PO PRN (16:00)
[2021-01-29] MEDS ORDERED: DO NOT ADMINISTER PNEUMOCOCCAL VACCINE PRN (16:00)
[2021-01-29] MEDS ORDERED: FAMOTIDINE 20 MG TAB PO PRN (16:00)
[2021-01-29] MEDS ORDERED: bisacodyL 10 MG SUPP PR PRN (16:00)
[2021-01-29] MEDS ORDERED: traMADol HCL 50 MG TABLET PO PRN (16:00)
[2021-01-29] MEDS ORDERED: PHARMACY GLYCEMIC MGMT CONSULT SCH (16:13)
[2021-01-29] MEDS ORDERED: GLUCAGON FOR INJ 1 MG VIAL IM PRN (16:30)
[2021-01-29] MEDS ORDERED: NovoLIN-N (NPH) PER UNIT CHARGE SQ SCH (16:30)
[2021-01-29] MEDS ORDERED: GLUCOSE 40% GEL 15 GM TUBE PO PRN (16:30)
[2021-01-29] MEDS ORDERED: CARBOHYDRATES FOR HYPOGLYCEMIA PO PRN (16:30)
[2021-01-29] MEDS ORDERED: GLUCOSE 10 TABS/TUBE PO PRN (16:30)
[2021-01-29] MEDS ORDERED: DEXTROSE 50% 50 ML SYRINGE IV PRN (16:30)
[2021-01-29] MEDS: ceFAZolin 2000MG 2,000 MG/15 ML SYR IV SCH (17:22)
[2021-01-29] MEDS: INSULIN ASPART 100 UNITS/ML 3 ML PEN SC SCH ×2 (17:26→21:06)
[2021-01-29] MEDS: SODIUM CHLORIDE 0.9% 1000ML 1,000 ML IV SCH (17:51)
[2021-01-29] MEDS ORDERED: glipiZIDE 5 MG TAB PO SCH (21:00)
[2021-01-29] MEDS ORDERED: [UNRECOGNIZED DRUG - OTHER] PO SCH (21:00)
[2021-01-29] MEDS: DOCUSATE SODIUM/SENNA 50/8.6MG TAB PO SCH (21:05)
--- NOTE | 2021-01-29 21:09 | Hospitalist Consultation ---
Date of Consultation January 29, 2021 Assessment & Plan (1) Neurogenic claudication due to lumbar spinal stenosis: S/p lumbar decompression and posterior spinal fusion with instrumentation [01/29/21] Pain and DVT prophylaxis management per surgery (2) Diabetes mellitus, type II: Hemoglobin A1c 6.87 November Pharmacy consulted for glycemic control with adequate glucose control with insulin at this time. He denies any hypoglycemic events at home therefore would recommend he goes back onto his usual oral regimen on discharge. (3) Hypertension: Continue lisinopril 20 mg p.o. daily Continue amlodipine 10 mg daily with hold parameter if systolic blood pressure less than 120. (4) Hyperlipidemia: Continue atorvastatin 20 mg p.o. daily Thanks for the consult. We will review the patient with a.m. labs tomorrow. History of Present Illness Reason for Consultation: Medical management Attending Physician: Jacobo Andrade DO History of Present Illness Portillo Johnson is a 70 year old male who presents for elective lumbar decompression under Dr Andrade performed earlier today. He feels well postoperatively with no current concerns or questions. Chronic medical conditions: Hypertension -patient reports well-controlled on current regimen of lisinopril 20 mg and amlodipine 10 mg Type 2 diabetes mellitus -well controlled with HbA1c 6.8 in November on glipizide and Metformin. Current glucose 181. No prior peripheral artery disease, heart attack or stroke. Allergies Allergy/AdvReac Type Severity Reaction Status Date / Time No Known Allergies Allergy Verified 01/29/21 08:53 Home Medications Medication Instructions Recorded Confirmed Type aspirin [Aspir-81] 81 mg PO QAM 12/08/18 01/29/21 History lancets 30 gauge #50 ea 02/05/20 12/17/20 Rx blood-glucose meter #1 ea 02/06/20 12/17/20 Rx glipizide 5 mg tablet 5 mg PO BID #180 tab 05/13/20 01/29/21 Rx tramadol 50 mg tablet 50 mg PO Q8H PRN #14 tab 05/30/20 01/29/21 Rx blood sugar diagnostic #50 ea 09/17/20 12/17/20 Rx garlic 1,000 mg PO QAM 11/29/20 01/29/21 History glucos sul 9QBr-hsk-hgtbl-C-Mn 2 cap PO QAM 11/29/20 01/29/21 History [Glucosamine Chondroitin] vit 1 cap PO BID cap 12/05/20 01/29/21 History C,E,zinc,Xx-lijza-8-lutein-zeaxanthin 250 mg-2.5 mg-0.5 mg capsule amlodipine 10 mg tablet 10 mg PO QAM #90 tab 12/30/20 01/29/21 Rx atorvastatin 20 mg tablet 20 mg PO QAM #90 tab 12/30/20 01/29/21 Rx lisinopril 20 mg tablet 20 mg PO QAM #90 tab 12/30/20 01/29/21 Rx metformin 500 mg tablet 500 mg PO BID #180 tab 12/30/20 01/29/21 Rx Patient History Medical History Benign prostatic hyperplasia with urinary obstruction Cerebral palsy CKD stage 3 due to type 2 diabetes mellitus Diabetes mellitus, type II Hyperlipidemia Hypertension Lumbar spinal stenosis Obesity (BMI 30.0-34.9) Temporomandibular joint disorder Surgical History History of cataract surgery History of difficult intubation Hx of transurethral resection of prostate Status post biopsy of skin Family History Grandfather (Maternal) Family history of diabetes mellitus Denies family history of Ovarian cancer Prostate cancer Myocardial infarction Breast cancer Colorectal cancer Social History Smoking Status: Never smoker Second Hand Exposure: No; Do You Dip or Chew Tobacco: No; Hx Alcohol Use: No Hx Substance Use: No Preferred Language: Slovenian Communication Ability: Effective Visual Impairment: No Limitations Hearing Ability: Normal 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: No Beliefs That Will Affect Care: None marital status: Single Current Living Situation: Alone current occupational status: retired Other Information That Helps Us Care for You: No Feels Safe at Home: Yes Safety Concerns: Feels Safe At This Time Childhood Exposure to Second-Hand Smoke: No caffeine: Yes Dental Care, Regularly: Yes Physical Activity Frequency: Daily Seatbelt Use: always Sunscreen Use: Yes Assistive Devices: Walker Assistive Devices Comment: uses "apartment shopping cart" Review of Systems Review of Systems: All systems reviewed & are unremarkable except as noted in HPI & below Physical Exam Constitutional: WD/WN, vitals as above Eyes: + anicteric sclerae; normal pupil size Exotropia noted ENMT: external ear and nose normal, oropharynx normal Neck: trachea midline, no thyromegaly Respiratory: normal respiratory effort, lungs clear to auscultation Cardiovascular: RRR, no murmur, no edema Gastrointestinal (Abdomen): normal bowel sounds, soft, nontender, no hepatosplenomegaly Skin: no rashes, warm and dry Neurologic: moves all extremities (Moving both ankles and toes) and awake; not confused Psychiatric: A+Ox3, euthymic affect Results & Data Results & Data ([facility]) Vital Signs (Past 12 Hours) Vital Signs Temp Pulse Pulse Resp BP Pulse Ox 01/29/21 19:21 36.5 C 78 18 116/75 97 01/29/21 17:59 36.4 C L 94 H 18 134/76 92 01/29/21 15:42 36.6 C 102 H 16 130/74 01/29/21 15:00 36.8 C 91 H 18 141/74 H 100 01/29/21 14:40 85 16 126/70 95 01/29/21 14:30 90 16 137/77 95 01/29/21 14:20 87 16 114/71 95 01/29/21 14:10 92 H 14 138/73 96 01/29/21 14:00 79 16 143/81 H 95 01/29/21 13:50 36.0 C L 86 16 134/78 95 01/29/21 13:40 78 16 144/79 H 97 01/29/21 13:30 80 18 107/78 97 01/29/21 13:20 84 16 152/96 H 94 01/29/21 13:10 87 20 133/94 95 01/29/21 13:09 36.3 C L 107 H 12 159/79 H 97 PG Care Time/CCT Total # of Minutes Spent Total Time Spent with Patient: Total time spent is greater than 50% in coordination of care (as documented) at patient's floor/unit and/or counseling patient: Coding Level of Care Code 64989 Inpt Consult Level 3 Diagnoses Neurogenic claudication due to lumbar spinal stenosis M48.062 Diabetes mellitus, type II E11.22; N18.32 Diabetes mellitus chcf insulin use: without chcf use Diabetes mellitus complication status: with kidney complications Diabetes mellitus complication detail: with chronic kidney disease Chronic kidney disease stage: stage 3 (moderate) Chronic kidney disease stage 3 subtype: stage 3b (GFR 30-44) Hypertension I10 Hypertension type: essential hypertension Hyperlipidemia E78.5 Hyperlipidemia type: unspecified (1) Diabetes mellitus, type II Diabetes mellitus chcf insulin use: without 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 use Diabetes mellitus complication status: with kidney complications Diabetes mellitus complication detail: with chronic kidney disease Chronic kidney disease stage: stage 3 (moderate) Chronic kidney disease stage 3 subtype: stage 3b (GFR 30-44) Qualified Code(s): E11.22 - Type 2 diabetes mellitus with diabetic chronic kidney disease; N18.32 - Chronic kidney disease, stage 3b (2) Hypertension Hypertension type: essential hypertension Qualified Code(s): I10 - Essential (primary) hypertension (3) Hyperlipidemia Hyperlipidemia type: unspecified Qualified Code(s): E78.5 - Hyperlipidemia, unspecified
[2021-01-30] MEDS: ceFAZolin 2000MG 2,000 MG/15 ML SYR IV SCH (01:55)
[2021-01-30] MEDS ORDERED: INSULIN ASPART 100 UNITS/ML 3 ML PEN SC SCH (02:00)
[2021-01-30] MEDS: oxyCODONE HCL IR 5 MG TAB (IMMEDIATE RELEASE) PO PRN ×3 (03:16→22:04)
[2021-01-30] MEDS: POLYETHYLENE (MIRALAX) 17 GM PACK PO SCH ×3 (05:21→17:49)
[2021-01-30 06:40] LABS: Hematocrit (blood only) 32.7 % (42-52); Hemoglobin 10.6 g/dL (14.0-18.0); Immature Granulocytes # (auto) 0.03 K/uL (0.00-0.02); Immature Granulocytes % (auto) 0.2 %; Lymphocytes # (auto) 1.08 K/uL (1.2-3.4); Lymphocytes % (auto) 7.6 %; Mean Corpuscular Hemoglobin 29.5 pg (25-34); Mean Corpuscular Hgb Conc 32.4 g/dL (32-36); Mean Corpuscular Volume 91.1 fL (80-100); Mean Platelet Volume 10.5 fL (7.4-10.4); Monocytes % (auto) 7.1 %; Neutrophils # (auto) 12.06 K/uL (1.4-6.5); Neutrophils % (auto) 85.1 %; Platelet Count 229 K/uL (130-400); RDW Standard Deviation 46.3 fL (36.4-46.3); Red Blood Count 3.59 M/uL (4.7-6.1); White Blood Count 14.17 K/uL (4.8-10.8)
[2021-01-30 06:57] LABS: Creatinine Clr Calc Pharmacy 53.2 ml/min; Est GFR (African American) 56.3 ml/min; Est GFR (Non-African American) 48.6 ml/min; Potassium 4.5 mmol/L (3.5-5.1)
[2021-01-30] MEDS: lisinopril 20 MG TAB PO SCH (08:56)
[2021-01-30] MEDS: ATORVASTATIN 20 MG TAB PO SCH (08:56)
[2021-01-30] MEDS: ASPIRIN 81 MG ECTAB PO SCH (08:56)
[2021-01-30] MEDS: INSULIN ASPART 100 UNITS/ML 3 ML PEN SC SCH ×4 (08:57→21:00)
[2021-01-30] MEDS ORDERED: LANTUS PER UNIT CHARGE SQ ONE (09:00)
[2021-01-30] MEDS: amLODIPine BESYLATE 5 MG TAB PO SCH (09:02)
--- NOTE | 2021-01-30 10:40 | Hospitalist Progress Note ---
Date of Service January 30, 2021 Assessment & Plan (1) Neurogenic claudication due to lumbar spinal stenosis: S/p lumbar decompression and posterior spinal fusion with instrumentation [01/29/21]. Pain and DVT prophylaxis management per surgery. Labs reviewed and nothing unexpected. (2) Diabetes mellitus, type II: Hemoglobin A1c 6.8 in November Pharmacy consulted for glycemic control with adequate glucose control with insulin at this time. Glucose 86-181. He denies any hypoglycemic events at home therefore would recommend he goes back onto his usual oral regimen on discharge. (3) Hypertension: Given relative hypotension today will also place hold parameters on lisinopril 20 mg p.o. daily (Hold if sBP < 120) Continue amlodipine 10 mg daily with hold parameter if systolic blood pressure less than 140. (4) Hyperlipidemia: Continue atorvastatin 20 mg p.o. daily Thank you for the consult. Will continue to review patient given mild hypoxia and hypotension. Admission and Anticipated Discharge Date Admission Date: January 29, 2021 Subjective No acute concerns or questions. Sitting out in chair this morning. Bustos cath remains in place with surgical drain. Pt out in chair and off oxygen. Glucose control is good. Amlodipine appropriately held this morning with hold parameters. Labs reviewed and expected post operatively. No dizziness, presyncope. Review of Systems Review of Systems: All systems reviewed & are unremarkable except as noted in HPI & below Physical Exam Constitutional: WD/WN, vitals as above Eyes: + anicteric sclerae; normal pupil size ENMT: external ear and nose normal, oropharynx normal Neck: trachea midline, no thyromegaly Respiratory: normal respiratory effort, lungs clear to auscultation Cardiovascular: RRR, no murmur, no edema Gastrointestinal (Abdomen): normal bowel sounds, soft, nontender, no hepatosplenomegaly Skin: no rashes, warm and dry Neurologic: moves all extremities (Moving both ankles and toes) and awake; not confused Psychiatric: A+Ox3, euthymic affect Results & Data Results & Data ([facility]) Vital Signs (Past 12 Hours) Vital Signs Temp Pulse Resp BP Pulse Ox 01/30/21 08:01 36.5 C 81 16 116/72 93 01/30/21 03:05 36.6 C 82 20 103/63 92 PG Care Time/CCT Total # of Minutes Spent Total Time Spent with Patient: Total time spent is greater than 50% in coordination of care (as documented) at patient's floor/unit and/or counseling patient: Coding Level of Care Code 27154 Inpt Consult Level 2 Diagnoses Neurogenic claudication due to lumbar spinal stenosis M48.062 Diabetes mellitus, type II E11.22; N18.32 Chronic kidney disease stage: stage 3 (moderate) Chronic kidney disease stage 3 subtype: stage 3b (GFR 30-44) Diabetes mellitus complication detail: with chronic kidney disease Diabetes mellitus complication status: with kidney complications Diabetes mellitus predatory animal exterminator insulin use: without senior care use Hypertension I10 Hypertension type: essential hypertension Hyperlipidemia E78.5 Hyperlipidemia type: unspecified (1) Diabetes mellitus, type II Chronic kidney disease stage: stage 3 (moderate) Chronic kidney disease stage 3 subtype: stage 3b (GFR 30-44) Diabetes mellitus complication detail: with chronic kidney disease Diabetes mellitus complication status: with kidney complications Diabetes mellitus senior care insulin use: without predatory animal exterminator use Qualified Code(s): E11.22 - Type 2 diabetes mellitus with diabetic chronic kidney disease; N18.32 - Chronic kidney disease, stage 3b (2) Hyperlipidemia Hyperlipidemia type: unspecified Qualified Code(s): E78.5 - Hyperlipidemia, unspecified (3) Hypertension Hypertension type: essential hypertension Qualified Code(s): I10 - Essential (primary) hypertension
--- NOTE | 2021-01-30 11:05 | Pharmacy Report ---
Pharmacy Glycemic Short Note 2 - Date of Service January 30, 2021 - Glycemic Short BSG Results (Last 24 hours): 01/29/21 01/29/21 01/29/21 13:11 17:21 20:39 Glucose POC Glucose 179 H 181 H 127 H 01/30/21 01/30/21 01/30/21 01:53 05:57 08:30 Glucose 111 H POC Glucose 86 137 H OUTPATIENT ANTIDIABETIC REGIMEN: * Metformin * Glipizide * HbA1c 6.8% on 12/05/20 ASSESSMENT: * 70 yo M with T2DM well controlled on two oral medications as an outpatient admitted 01/29 and now POD 1 s/p lumbar decompression/fusion. Dexamethasone administered perioperatively * Effects of dexamethasone will likely persist today * Will give one-time dose of Lantus. Anticipate that ongoing basal after today will not be needed * Will loosen Novolog slightly as effects of steroids are likely starting to wear off and BSG overnight was a little low * Dexamethasone now resuming tomorrow AM. Will resume NPH and tighten Novolog parameters back at that time PLAN FOR INPATIENT GLYCEMIC CONTROL: * Hold outpatient oral diabetes medications * Basal insulin * Lantus 15 units SQ x1 now * NPH 30 units SQ qAM starting tomorrow * Bolus insulin * NovoLog per scale ACHS or Q6hrs while NPO * Goal Range: Low 110 mg/dL - High 140 mg/dL * Correction Factor: 20 mg/dL/unit * Nutritional / Prandial insulin per carb ratio of 1 unit per 7 grams CHO consumed * Bolus insulin (starting tomorrow AM) * NovoLog per scale ACHS or Q6hrs while NPO * Goal Range: Low 110 mg/dL - High 140 mg/dL * Correction Factor: 18 mg/dL/unit * Nutritional / Prandial insulin per carb ratio of 1 unit per 6 grams CHO consumed PLAN FOR DISCHARGE: * Continue home medications, assuming no contraindications at discharge
--- NOTE | 2021-01-30 12:04 | Orthopedic Progress Note ---
Date of Service January 30, 2021 Assessment & Plan (1) Neurogenic claudication due to lumbar spinal stenosis: Admission and Anticipated Discharge Date Admission Date: January 29, 2021 We will continue physical therapy monitor his JULIANE operatively discharge home this weekend with home health. Subjective Back pain controlled leg pain improved Physical Exam Physical Exam: Patient is stable in bed. Is good strength testing. Appears comfortable. Results & Data ([facility]) Vital Signs (Past 12 Hours) Vital Signs Temp Pulse Resp BP Pulse Ox 01/30/21 08:01 36.5 C 81 16 116/72 93 01/30/21 03:05 36.6 C 82 20 103/63 92
[2021-01-30] MEDS: DOCUSATE SODIUM/SENNA 50/8.6MG TAB PO SCH (22:04)
[2021-01-31] MEDS: POLYETHYLENE (MIRALAX) 17 GM PACK PO SCH ×5 (00:09→23:21)
[2021-01-31] MEDS: SODIUM CHLORIDE 0.9% 1000ML 1,000 ML IV SCH (00:09)
[2021-01-31] MEDS: oxyCODONE HCL IR 5 MG TAB (IMMEDIATE RELEASE) PO PRN ×3 (08:05→17:40)
[2021-01-31] MEDS ORDERED: INSULIN HUMAN NPH SC SCH ×2 (09:00)
[2021-01-31] MEDS: ASPIRIN 81 MG ECTAB PO SCH (09:04)
[2021-01-31] MEDS: amLODIPine BESYLATE 5 MG TAB PO SCH (09:04)
[2021-01-31] MEDS: dexAMETHasone 8 MG in SYRINGE 0 ML IV SCH (09:05)
[2021-01-31] MEDS: ATORVASTATIN 20 MG TAB PO SCH (09:05)
[2021-01-31] MEDS: lisinopril 20 MG TAB PO SCH (09:05)
[2021-01-31] MEDS: INSULIN ASPART 100 UNITS/ML 3 ML PEN SC SCH ×4 (09:10→21:35)
--- NOTE | 2021-01-31 09:33 | Pharmacy Report ---
Pharmacy Glycemic Short Note 2 - Date of Service January 31, 2021 - Glycemic Short BSG Results (Last 24 hours): 01/30/21 01/30/21 01/30/21 11:56 17:01 22:05 POC Glucose 178 H 144 H 139 H 01/31/21 08:03 POC Glucose 125 H OUTPATIENT ANTIDIABETIC REGIMEN: * Metformin * Glipizide * HbA1c 6.8% on 12/05/20 ASSESSMENT: 01/31/21 * Pt has received 40 units of insulin over the past 24hrs * 15 units of basal with Lantus * 25 units of bolus with NovoLog * BSGs [id number] mg/dl * AM fasting BSG is in goal range this AM at 125mg/dl. However, pt will receive dexamethasone 8mg IV this AM. Will change Lantus to NPH for steroids and increase dosing to the same dosing that was used 01/29 when patient received dxm 8mg IV intraoperatively. * Empirically tighten CF/CR for steroid induced hyperglycemia 01/30/21 * 70 yo M with T2DM well controlled on two oral medications as an outpatient admitted 01/29 and now POD 1 s/p lumbar decompression/fusion. Dexamethasone administered perioperatively * Effects of dexamethasone will likely persist today * Will give one-time dose of Lantus. Anticipate that ongoing basal after today will not be needed * Will loosen Novolog slightly as effects of steroids are likely starting to wear off and BSG overnight was a little low * Dexamethasone now resuming tomorrow AM. Will resume NPH and tighten Novolog parameters back at that time PLAN FOR INPATIENT GLYCEMIC CONTROL: * Hold outpatient oral diabetes medications * Basal insulin: change Lantus to NPH; dosed per weight and steroids * NPH 35 units (0.35units/kg) SQ qAM * Bolus insulin * NovoLog per scale ACHS or Q6hrs while NPO * Goal Range: Low 110 mg/dL - High 140 mg/dL * Correction Factor: 18 mg/dL/unit * Nutritional / Prandial insulin per carb ratio of 1 unit per 6 grams CHO consumed PLAN FOR DISCHARGE: * Continue home medications, assuming no contraindications at discharge
--- NOTE | 2021-01-31 11:06 | Orthopedic Progress Note ---
Date of Service January 31, 2021 Assessment & Plan (1) Neurogenic claudication due to lumbar spinal stenosis: Admission and Anticipated Discharge Date Admission Date: January 29, 2021 At this time we will continue physical therapy occupational therapy. I am going to work with him regarding possible rehab placement the next day or so. Subjective Patient's back pain is controlled leg symptoms improved Physical Exam Physical Exam: Patient is in bed he has good strength testing appears comfortable. Results & Data ([facility]) Vital Signs (Past 12 Hours) Vital Signs Temp Pulse Pulse Resp BP Pulse Ox 01/31/21 08:58 36.7 C 86 15 110/74 92 01/31/21 07:11 36.5 C 94 H 16 138/79 96 01/30/21 23:27 36.9 C 97 H 18 98/56 L 93
--- NOTE | 2021-01-31 18:52 | Hospitalist Progress Note ---
Date of Service January 31, 2021 Assessment & Plan (1) Neurogenic claudication due to lumbar spinal stenosis: S/p lumbar decompression and posterior spinal fusion with instrumentation [01/29/21]. Pain and VTE prophylaxis management per surgery. (2) Diabetes mellitus, type II: Hemoglobin A1c 6.8 in November Pharmacy consulted for glycemic control with adequate glucose control with insulin at this time. Glucose 86-181. He denies any hypoglycemic events at home therefore would recommend he goes back onto his usual oral regimen on discharge. (3) Hypertension: Continue hold parameters on lisinopril 20 mg p.o. daily (Hold if sBP < 120) Continue amlodipine 10 mg daily with hold parameter if systolic blood pressure less than 140. (4) Hyperlipidemia: Continue atorvastatin 20 mg p.o. daily Thank you for the consult. Will sign off on the patient at this time. Please contact medicine team prior to discharge for recommendations regarding antihypertensives. Admission and Anticipated Discharge Date Admission Date: January 29, 2021 Subjective No acute medical questions or concerns. Hypotensive last night resolved by this morning. Hold parameters he should not have been given amlodipine this morning but ended up taking both lisinopril and amlodipine and blood pressure appears to be relatively stable. Review of Systems Review of Systems: All systems reviewed & are unremarkable except as noted in HPI & below Physical Exam Constitutional: WD/WN, vitals as above + obese Respiratory: normal respiratory effort, lungs clear to auscultation Cardiovascular: RRR, no murmur, no edema Gastrointestinal (Abdomen): normal bowel sounds, soft, nontender, no hepatosplenomegaly Skin: no rashes, warm and dry Neurologic: moves all extremities (Moving both ankles and toes) and awake; not confused Psychiatric: A+Ox3, euthymic affect Results & Data Results & Data ([facility]) Vital Signs (Past 12 Hours) Vital Signs Temp Pulse Pulse Resp BP Pulse Ox 01/31/21 14:36 36.7 C 104 H 16 117/69 92 01/31/21 11:45 36.4 C L 93 H 16 118/70 92 01/31/21 08:58 36.7 C 86 15 110/74 92 01/31/21 07:11 36.5 C 94 H 16 138/79 96 PG Care Time/CCT Total # of Minutes Spent Total Time Spent with Patient: Total time spent is greater than 50% in coordination of care (as documented) at patient's floor/unit and/or counseling patient: Coding Level of Care Code 90543 Subseq Hosp Care Lvl 1 Diagnoses Neurogenic claudication due to lumbar spinal stenosis M48.062 Diabetes mellitus, type II E11.22; N18.32 Chronic kidney disease stage: stage 3 (moderate) Chronic kidney disease stage 3 subtype: stage 3b (GFR 30-44) Diabetes mellitus complication detail: with chronic kidney disease Diabetes mellitus complication status: with kidney complications Diabetes mellitus technician terminal and repeater insulin use: without technician terminal and repeater use Hypertension I10 Hypertension type: essential hypertension Hyperlipidemia E78.5 Hyperlipidemia type: unspecified (1) Diabetes mellitus, type II Chronic kidney disease stage: stage 3 (moderate) Chronic kidney disease stage 3 subtype: stage 3b (GFR 30-44) Diabetes mellitus complication detail: with chronic kidney disease Diabetes mellitus complication status: with kidney complications Diabetes mellitus group home insulin use: without technician terminal and repeater use Qualified Code(s): E11.22 - Type 2 diabetes mellitus with diabetic chronic kidney disease; N18.32 - Chronic kidney disease, stage 3b (2) Hyperlipidemia Hyperlipidemia type: unspecified Qualified Code(s): E78.5 - Hyperlipidemia, unspecified (3) Hypertension Hypertension type: essential hypertension Qualified Code(s): I10 - Essential (primary) hypertension
[2021-01-31] MEDS: DOCUSATE SODIUM/SENNA 50/8.6MG TAB PO SCH (20:03)
[2021-02-01] MEDS: POLYETHYLENE (MIRALAX) 17 GM PACK PO SCH ×2 (06:00→12:09)
[2021-02-01] MEDS: INSULIN ASPART 100 UNITS/ML 3 ML PEN SC SCH ×2 (08:58→12:55)
[2021-02-01] MEDS ORDERED: INSULIN HUMAN NPH SC SCH (09:00)
[2021-02-01] MEDS: ASPIRIN 81 MG ECTAB PO SCH (09:01)
[2021-02-01] MEDS: dexAMETHasone 8 MG in SYRINGE 0 ML IV SCH (09:02)
[2021-02-01] MEDS: ATORVASTATIN 20 MG TAB PO SCH (09:02)
[2021-02-01] MEDS: lisinopril 20 MG TAB PO SCH (09:04)
--- NOTE | 2021-02-01 10:25 | Discharge Summary ---
Date of Service February 01, 2021 Admission HPI Per Admitting Provider This is a 70-year-old male presents with chronic persistent back and bilateral leg pain. After failing course of nonoperative care is here for surgical intervention. Principal Diagnosis Lumbar spinal stenosis with neurogenic claudication Discharge Data Allergies Allergy/AdvReac Type Severity Reaction Status Date / Time No Known Allergies Allergy Verified 01/29/21 08:53 Consultations 01/29/21 16:00 Consult Hospitalist Routine Procedures Performed Operation Date: 01/29/21 09:45 Actual Procedures p L2-S1 Decompression and Fusion, Interbody Cage Insertion L4-L5 and L5-S1, Spinal Cord Monitoring(Not Applicable) - Jacobo Andrade DO Ordered Studies 01/29/21 09:45 FL lumbar spine 2-3V Routine Hospital Course (1) Neurogenic claudication due to lumbar spinal stenosis: Patient with multilevel lumbar decompression fusion tolerated well second orthopedic for postop labor postop day 1 he was up ambulating place postop day #2 on postop day #3 JULIANE drain decreased appropriate. Pain well controlled. Subsequently discharged to rehab. Discharge orders instructions from the chart for further review. Total Time Total Time Spent Total Time Spent (In Minutes): 20 minutes Discharge Plan Discharge Items Patient Disposition: Transfer Inpatient Rehab Fac Reason For Visit: Spinal Stenosis, Lumbar Region with Neurogenic Discharge Diagnosis: Lumbar spinal stenosis with neurogenic claudication Activity: As commented below Non-emergency contact: Primary Care Provider Call non-emergency contact if: you have any medication questions Follow-up/Referrals: Anatoly Solis DO [Primary Care Provider] - Diet: Regular Addtl Attending Provider Instructions: ACTIVITY RECOMMENDATIONS: SELF CARE INSTRUCTIONS AFTER THORACIC/LUMBAR FUSIONS 1. You may walk to your tolerance. It is good exercise for your legs and back. Expect some back and intermittent leg aches and pains. 2. You may perform "counter-top" level activities (make a sandwich, catracho with a project, etc.). 3. No bending or lifting of more than 10 pounds or back twisting of any nature (roll like a log when turning in bed). 4. You may ride in a car for 20-30 minutes at a time. No driving until after your first visit with your doctor. 5. Frequent changes of position and restricting sitting to 30 minutes at a time will help limit the amount of back spasms and stiffness you may experience. 6. You may discontinue the use of ambulatory aids (cane, crutches, etc.) once your strength and confidence allow. 7. You may library cataloging technician the shower and let water strike your incision when you arrive home at least once daily. Do not take a tub bath, sit in a hot tub or go into a swimming pool until after your first recheck in the office. SPECIAL CARE INSTRUCTIONS: VERY IMPORTANT TO READ AND REVIEW A. Your surgical incision has been closed with a cosmetic suture under the skin that will dissolve in about 6 weeks. In 14 days, you can use a pair of clean scissors and cut the suture that is left outside of the skin at the ends of your incision. 1. The small skin tapes can be removed 7 days after surgery if they have not fallen off by that point. 2. You may keep the wound open to air as much as possible to promote healing after post-op day number 5 unless told otherwise by your doctor. 3. If you think the wound looks like it is becoming infected (redness or worsening drainage) and/or you are experiencing fever, chill or worsening back pain and muscle spasms, contact the office so that we may evaluate you as soon as possible. B. Complications are uncommon, but please contact us if you have any signs or symptoms of: 1. wound infection (fever higher than 102.5 degrees F, redness, separation of wound, drainage, or increasing pain from the incision) 2. blood clots in legs (pain, swelling, redness and warmth in legs) 3. urinary tract infection (fever higher than 102.5 degrees F, burning upon urination or increased frequency of urination) 4. nerve problems (inability to walk on your toes or heels, numbness, loss of bowel or bladder control) 5. any other symptoms that concern you C. Please call the office at if you have any concerns or questions about your operation or recovery. D. No smoking! Smoking drastically decreases the chance of a solid fusion. E. Do not take any anti-inflammatory medications (Indocin, Advil, Motrin, Aspirin, Naprosyn, etc.) as these may inhibit the chance of a solid fusion. Tylenol is okay to take for pain. MANAGING PAIN AFTER SPINAL SURGERY 1. Narcotic medication is intended for short-term use and will be provided for surgical pain. Surgical pain usually lasts for a period of 4-6 weeks. Narcotic medication includes Percocet, Vicodin, Darvocet, Tylenol #3 or Lortab. 2. Longer-term pain is more appropriately treated with non-narcotic medication such as Tylenol ES. 3. Muscle spasm is not appropriately treated with narcotics. Muscle relaxers such as Soma, Flexeril or Skelaxin can be used along with Tylenol ES. 4. Remember that we all live with some "aches and pains". This is not unusual or uncommon after an injury or as we get older. a. Back pain is expected and may include muscle spasms for 4 to 6 weeks after surgery. The pain should gradually improve. If the pain worsens for no apparent reason, please contact the office. b. Intermittent leg pain may also be experienced and should not be concerned about unless it worsens for no apparent reason. If so, please contact the office. 5. We will provide appropriate medication within the normal guidelines of their prescribed use. We will also be very cautious and aware of potential abuse and extended duration of patients' medication needs. a. Pain medications are for your comfort and to assist with sleep and rest so that the tissue can heal. They are not provided in order to return to normal activity and should not be used through the day. To do so or worsening pain at night can result from ongoing tissue damage and development of tolerance to the prescribed medicine. 6. Please allow 2-3 days to process refills. Prescriptions will not be mailed but must be picked up at the office. FOLLOW UP VISIT: Keep your scheduled follow-up appointment. Any questions, please call the office at . Pending Studies at Discharge: No Stand-Alone Forms: My [employer], Smoking Cessation Skilled Items Patient informed of condition?: Yes DNR: No Discharge Level of Care: Acute rehab Communicable Disease: No Discharge Prognosis: Improving Lines: None Urinary Catheter: No Medications and DC Order Prescriptions: New oxycodone 5 mg tablet 5 mg PO Q6H PRN (Reason: pain, severe) Qty: 30 RF: 0 tramadol 50 mg tablet 50 mg PO Q6H PRN (Reason: pain, moderate) Qty: 30 RF: 0 Continued (DME) lancets [OneTouch Delica Lancets] 30 gauge misc See Rx Instructions .ROUTE .MEDSUPPLY Qty: 50 RF: 3 (DME) blood-glucose meter [OneTouch Verio Flex meter] Misc See Rx Instructions .ROUTE .MEDSUPPLY Qty: 1 RF: 0 glipizide 5 mg tablet 5 mg PO BID Qty: 180 RF: 3 (DME) OneTouch Verio test strips Strip See Rx Instructions .ROUTE .MEDSUPPLY Qty: 50 RF: 3 amlodipine 10 mg tablet 10 mg PO QAM Qty: 90 RF: 1 atorvastatin 20 mg tablet 20 mg PO QAM Qty: 90 RF: 1 metformin 500 mg tablet 500 mg PO BID Qty: 180 RF: 1 lisinopril 20 mg tablet 20 mg PO QAM Qty: 90 RF: 1 tramadol 50 mg tablet 50 mg PO Q8H PRN (Reason: pain) Qty: 14 RF: 0 aspirin [Aspir-81] 81 mg Tablet,Delayed Release (Dr/Ec) 81 mg PO QAM RF: 0 garlic 1,000 mg Capsule 1,000 mg PO QAM RF: 0 Glucosamine Chondroitin 550-30-1 mg Capsule 2 cap PO QAM RF: 0 vit C,E,Zn,[id number] 250-2.5-0.5 mg capsule 1 cap PO BID RF: 0 Discharge Orders: Discharge Order (Routine); Ordered 02/01/21 Ordered By: Jacobo Andrade Admission Data Admit Date/Time: 01/29/21 13:05 Attending Provider: Jacobo Andrade Admit Provider: Jacobo Andrade Primary Care Provider: Anatoly Solis [facility] Jesus Lo ; [facility]
== END 2021-02-01 15:22 | DRG 455 ==
LOC: ASU 08:22 → 3E 13:05